=== PATIENT | female | born 1960 | race Caucasian/White ===

== ENCOUNTER 2022-04-18 10:10 | Emergency (ER) | payer MEDICAID ==
[~2022-04-18] VITALS: Ht 177.8 cm; Wt 73.0 kg
[2022-04-18 10:12] VITALS: BP_SYST 95
[2022-04-18] MEDS ORDERED: LORA-269 PO (11:05)
[2022-04-18] MEDS ORDERED: ONDA4TAB12 PO (11:05)
[2022-04-18] MEDS ORDERED: GABA-530 PO (11:05)
== END 2022-04-18 11:22 | disposition home or self-care (01) ==
LOC: ER 10:10
DX: F10.20 Alcohol dependence, uncomplicated (principal); Y90.9 Presence of alcohol in blood, level not specified; Z79.899 Other long term (current) drug therapy
CPT/HCPCS: 99283

== ENCOUNTER 2023-02-04 12:19 | Emergency (ER) | payer MEDICAID ==
[~2023-02-04] VITALS: Ht 177.8 cm; Wt 77.3 kg
[~2023-02-04 12:19] MED LIST: GABA-530 PO; LORA-269 PO; ONDA4TAB12 PO
[2023-02-04 12:25] VITALS: TEMP 98.6
--- NOTE | 2023-02-04 13:15 | NUR ---
REPORT GIVEN TO CASEY RODRIGES
[2023-02-04 15:09] LABS: BASOPHILS % (AUTO) 0.3 % (0-1); EOSINOPHILS # (AUTO) 0.1 X10'3 (0-0.9); EOSINOPHILS % (AUTO) 1.2 % (0-6); HEMATOCRIT 42.8 % (35.0-45.0); HEMOGLOBIN 14.5 g/dl (12.0-16.0); LYMPHOCYTES # (AUTO) 1.2 X10'3 (1.1-4.8); LYMPHOCYTES % (AUTO) 13.4 % (21-51); MEAN CORPUSCULAR HEMOGLOBIN 34.3 PG (27.0-31.0); MEAN CORPUSCULAR HGB CONC 33.8 g/dL (33.0-36.5); MEAN CORPUSCULAR VOLUME 101.3 FL (78-98); MONOCYTES # (AUTO) 0.3 X10'3 (0-0.9); MONOCYTES % (AUTO) 3.4 % (2-12); NEUTROPHILS % (AUTO) 81.7 % (42-75); PLATELET COUNT 203 X10'3 (140-440); RED BLOOD COUNT 4.22 X10'6 (4.20-5.60); RED CELL DISTRIBUTION WIDTH 15.1 % (11.5-14.5); WHITE BLOOD COUNT 8.6 X10'3 (4.5-11.0)
[2023-02-04 15:23] LABS: ALANINE AMINOTRANSFERASE 56 U/L (12-78); ALBUMIN 3.4 G/DL (3.4-5.0); ALBUMIN/GLOBULIN RATIO 0.9 (1.1-1.5); ALKALINE PHOSPHATASE 110 IU/L (46-116); ANION GAP 10 (8-16); ASPARTATE AMINO TRANSFERASE 53 U/L (10-37); BILIRUBIN,TOTAL 0.4 MG/DL (0.1-1.0); BLOOD UREA NITROGEN 11 MG/DL (7-18); BUN/CREATININE RATIO 15.9 (10.0-20.0); CHLORIDE 103 MMOL/L (99-107); CREATININE 0.69 MG/DL (0.40-0.90); ETHANOL 100 MG/DL (<10); GLUCOSE 124 MG/DL (70-104); LIPASE 58 U/L (73-393); POTASSIUM 3.8 MMOL/L (3.5-5.1); SODIUM 138 MMOL/L (135-145); TOTAL CARBON DIOXIDE 24.9 MMOL/L (24-32); TOTAL PROTEIN 7.2 G/DL (6.4-8.2); eCRCL 94 ML/MIN; eGFR 87 ML/MIN
[2023-02-04 15:45] LABS: CALCIUM 8.6 MG/DL (8.5-10.1)
[2023-02-04 16:00] VITALS: BP 107/79; PULSE 75; RESP 17; O2SAT 98
--- NOTE | 2023-02-04 16:43 | NUR ---
1315 received report from kenneth rn assuming care of pt resting quietly resps even unlabored. 1530 pt up to br ambulated steady gait with sba.
== END 2023-02-04 17:04 | disposition home or self-care (01) ==
LOC: ER 12:20
DX: F10.129 Alcohol abuse with intoxication, unspecified (principal); Y90.9 Presence of alcohol in blood, level not specified; Z79.899 Other long term (current) drug therapy
CPT/HCPCS: 36415; 80053; 80320; 83690; 85025; 99283

== ENCOUNTER 2023-03-06 09:58 | Emergency (ER) | payer MEDICAID ==
[~2023-03-06] VITALS: Ht 175.3 cm; Wt 77.3 kg
[2023-03-06 10:01] VITALS: BP 124/89; PULSE 100; RESP 18; TEMP 97.9; O2SAT 97
== END 2023-03-06 12:19 | disposition left against medical advice (07) ==
LOC: ER 09:58
DX: F10.129 Alcohol abuse with intoxication, unspecified (principal); Z53.21 Procedure and treatment not carried out due to patient leaving prior to being seen by health care provider; Y90.9 Presence of alcohol in blood, level not specified
CPT/HCPCS: 99281